=== PATIENT | female | born 1945 | race Caucasian/White ===

== ENCOUNTER 2018-10-25 21:37 | Emergency (ER) | payer MEDICARE ==
[~2018-10-25] VITALS: Ht 160 cm; Wt 51.7 kg
[2018-10-25 21:49] VITALS: BP 144/90
[2018-10-25] MEDS ORDERED: Tylenol #3 tab (300mg/30mg) ORAL ONE (22:00)
[2018-10-25] MEDS ORDERED: IBUPROFEN600 MG ORAL (22:41)
--- NOTE | 2018-10-25 22:42 | Emergency Room Report ---
History of Present Illness General Chief Complaint: Upper Extremity Injury Source: Patient Present Illness HPI Is a 72-year-old female who is right-hand dominant. She presents with right wrist pain. She was on a ladder and fell with her hand behind her buttock. She complaining of wrist pain mostly on the ulnar aspect and volar aspect. No deformity. Pain is 7 out of 10. Did not take any medicine. Worse with palpation. Worse with movement. No other injury. No head injury. Allergies: Coded Allergies: No Known Allergies (Unverified , 10/25/18) Patient History Past Medical History: see triage record, old chart reviewed Past Surgical History: other Pertinent Family History: none Social History: Denies: smoking Now: No : 2 Para: 2 Immunizations: other Reviewed Nursing Documentation: PMH: Agreed; PSxH: Agreed Review of Systems Eye: Denies: eye pain, blurred vision ENT: Denies: ear pain, nose congestion, throat swelling Respiratory: Denies: cough, shortness of breath Cardiovascular: Denies: chest pain, palpitations Gastrointestinal: Denies: abdominal pain, diarrhea, nausea, vomiting Musculoskeletal: Reports: joint pain; Denies: back pain Skin: Denies: rash Neurological: Denies: headache, numbness Endocrine: Denies: increased thirst, increased urine Hematologic/Lymphatic: Denies: easy bruising All Other Systems: negative except mentioned in HPI Physical Exam Vital Signs Date Time Temp Pulse Resp B/P (MAP) Pulse Ox O2 Delivery O2 Flow Rate FiO2 10/25/18 21:43 98.1 88 18 144/90 96 Room Air vital signs unremarkable Sp02 EP Interpretation: reviewed, normal General Appearance: well appearing, no apparent distress, alert Head: normocephalic, atraumatic Eyes: bilateral eye PERRL, bilateral eye EOMI ENT: hearing grossly normal, normal pharynx Neck: full range of motion, supple, no meningismus Respiratory: chest non-tender, lungs clear, normal breath sounds Cardiovascular #1: regular rate, rhythm, no murmur Gastrointestinal: normal bowel sounds, non tender, no mass, no organomegaly, no bruit, non-distended Musculoskeletal: back normal, gait/station normal, other - Right wrist: Chest tenderness on the volar aspect by the ulnar bone. No deformity. No pain over the radius. Pulses normal. Psychiatric: mood/affect normal Skin: warm/dry Procedures Splinting Splinting : Consent: Verbal Location: Right wrist Pre-Made Type: velcro Splint: volar Pre-Proc Neuro Vasc Exam: normal Post-Proc Neuro Vasc Exam: normal Patient Tolerated: Well Complications: None Medical Decision Making Diagnostic Impression: Primary Impression: Right wrist sprain Qualified Codes: S63.501A - Unspecified sprain of right wrist, initial encounter ER Course Patient presents with a fall with wrist injury. I see no obvious fracture on the x-ray. There is some cortical deformity to the distal radius but I suspect this is chronic since patient has no pain in that area. Patient splinted and will be discharged home. Other X-Ray Diagnostic Results Other X-Ray Diagnostic Results : # of Views/Limited Vs Complete: 3 View Indication: Pain EP Interpretation: Yes Interpretation: no dislocation, no soft tissue swelling, no fractures Impression: No acute disease Electronically Signed by: Paulino Clark MD Last Vital Signs Date Time Temp Pulse Resp B/P (MAP) Pulse Ox O2 Delivery O2 Flow Rate FiO2 10/25/18 21:49 98.1 89 16 144/90 97 Room Air Status: improved Disposition: HOME, SELF-CARE Condition: Stable Scripts Ibuprofen* (MOTRIN*) 600 Mg Tablet 600 MG ORAL THREE TIMES A DAY, #30 TAB 0 Refills Prov: Paulino Clark MD 10/25/18 Referrals: NON PHYSICIAN (PCP) Additional Instructions: Elevate wrist. Ice pack to the area. Wear splint for comfort. Follow-up your doctor in a week. If still hurting, may need repeat x-rays. Return of worse. Paulino Clark MD Oct 25, 2018 22:42
[2018-10-25 22:55] VITALS: BP 130/68
--- NOTE | 2018-10-26 08:39 | Diagnostic Imaging Report ---
Indication: Right wrist pain Findings: 3 views of the right wrist were obtained. There is acute nondisplaced fracture of the distal radius and a fracture of the ulnar styloid. Bones are osteopenic. Soft tissue swelling noted. IMPRESSION: Acute fracture as described above
== END 2018-10-25 22:55 | disposition home or self-care (01) ==
LOC: EMR 22:04
DX: S63.501A Unspecified sprain of right wrist, initial encounter (principal); W11.XXXA Fall on and from ladder, initial encounter; Y92.9 Unspecified place or not applicable
CPT/HCPCS: 29125; 99283